=== PATIENT | female | born 1950 | race Caucasian/White ===

== ENCOUNTER 2021-12-04 19:22 | Emergency (ER) | payer MEDICARE, BC ==
[2021-12-04] MEDS ORDERED: cloNIDine 0.1 MG Tab PO ONE (20:26)
== END 2021-12-04 22:03 | disposition home or self-care (01) ==
LOC: JP.ED 19:22
DX: I16.0 Hypertensive urgency (principal); I10 Essential (primary) hypertension; Z91.013 Allergy to seafood; Z79.899 Other long term (current) drug therapy
CPT/HCPCS: 36415; 80048; 85025; 99283; A9270